=== PATIENT | male | born 1970 | race Caucasian/White ===

== ENCOUNTER 2019-06-04 16:12 | Emergency (ER) | payer SELFPAY ==
--- NOTE | 2019-06-04 17:02 | ER ---
Nurse's Notes [facility] Name: Sony Thornton Age: 49 yrs Sex: Male : 1970 Arrival Date: 06/04/2019 Time: 16:14 Bed 17 Private MD: Diagnosis: Currie's palsy Presentation: 06/03 16:24 Chief complaint: Patient states: Stabbing pain to R ear and R sided facial paralysis ss that began 4 days ago. Pt states, "I know it's bells palsy because I have a family history.". Coronavirus screen: The patient has NOT traveled to a country currently being monitored by the [facility] within the last 14 days. Proceed with normal triage procedures. Ebola Screen: Patient denies exposure to infectious person. Patient denies travel to an Ebola-affected area in the 21 days before illness onset. Initial Sepsis Screen: Does the patient meet any 2 criteria? No. Patient's initial sepsis screen is negative. Does the patient have a suspected source of infection? No. Patient's initial sepsis screen is negative. Risk Assessment: Do you want to hurt yourself or someone else? Patient reports no desire to harm self or others. 16:24 Method Of Arrival: Ambulatory ss 16:24 Acuity: PAVAN 4 ss 16:33 Onset of symptoms was June 04, 2019. ca1 Historical: - Allergies: 16:28 No Known Allergies; ss - Home Meds: 16:28 None [Active]; ss - PMHx: 16:28 None; ss - PSHx: 16:28 L knee; ss - Immunization history:: Adult Immunizations up to date. - Social history:: Smoking status: Patient denies any tobacco usage or history of. Screenin:33 Abuse screen: Denies threats or abuse. Denies injuries from another. Nutritional ca1 screening: No deficits noted. Tuberculosis screening: No symptoms or risk factors identified. Fall Risk None identified. Assessment: 16:33 General: Appears in no apparent distress. comfortable, Behavior is calm, cooperative, ca1 appropriate for age. Pain: Complains of pain in face and right ear Pain currently is 6 out of 10 on a pain scale. Pain began 1 day ago. 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 Gait is steady, Speech is normal, Facial droop on right, Pupils are PERRLA, Intact Denies weakness blurred vision difficulty swallowing, paresthesias numbness. Cardiovascular: Heart tones S1 S2 present Capillary refill < 3 seconds Patient's skin is warm and dry. Respiratory: Airway is patent Respiratory effort is even, unlabored, Respiratory pattern is regular, symmetrical, Breath sounds are clear bilaterally. GI: Abdomen is round non-distended, Bowel sounds present X 4 quads. Abd is soft and non tender X 4 quads. : No signs and/or symptoms were reported regarding the genitourinary system. EENT: No signs and/or symptoms were reported regarding the EENT system. Derm: Skin is intact, is healthy with good turgor, Skin is pink, warm \\T\\ dry. Musculoskeletal: Circulation, motion, and sensation intact. Capillary refill < 3 seconds. 17:10 Reassessment: Pt states, "that BP is pretty much right. You won't get anything lower ca1 than that. I have blood pressure medications but I don't take them". Vital Signs: 16:24 BP 155 / 111; Pulse 110; Resp 18; Temp 97.7(TE); Pulse Ox 98% ; Weight 108.86 kg; ss Height 6 ft. 0 in. (182.88 cm); 17:10 BP 161 / 108; Pulse 99; Resp 17 S; Pulse Ox 100% on R/A; ca1 16:24 Body Mass Index 32.55 (108.86 kg, 182.88 cm) ED Course: 16:14 Patient arrived in ED. mr 16:24 Aiden Sow PA is PHCP. jr8 16:24 Kyree Roger MD is Attending Physician. jr8 16:27 Triage completed. ss 16:28 Arm band placed on right wrist. ss 16:33 Jailyn Means, SPENCER is Primary Nurse. ca1 16:33 Patient has correct armband on for positive identification. Bed in low position. Call ca1 light in reach. Side rails up X 1. Pulse ox on. NIBP on. Warm blanket given. 16:33 No provider procedures requiring assistance completed. ca1 16:41 CT Head Brain wo Cont In Process Unspecified. EDMS 17:01 Ludwig Stroud MD is Referral Physician. jr8 17:19 Patient did not have IV access during this emergency room visit. ca1 Administered Medications: 17:01 Drug: predniSONE 60 mg Route: PO; ca1 17:20 Follow up: Response: No adverse reaction ca1 Outcome: 17: Discharge ordered by . jacque 17:19 Discharged to home ambulatory. ca1 17: Condition: stable 17:19 Discharge instructions given to patient, Instructed on discharge instructions, follow up and referral plans. medication usage, Demonstrated understanding of instructions, follow-up care, medications, Prescriptions given X 1. 17:20 Patient left the ED. ca1 Signatures: Dispatcher [employer] EDCO AnjelKarley mr Alesia Karimi, RN RN Aiden Sow PA PA jr8 Jailyn Means RN RN ca1
--- NOTE | 2019-06-04 17:02 | EDPHYS ---
Physician Documentation [facility] Name: Sony Thornton Age: 49 yrs Sex: Male : 1970 Arrival Date: 06/04/2019 Time: 16:14 Bed 17 Private MD: ED Physician Kyree Roger HPI: 06/03 16:42 This 49 yrs old Male presents to ER via Ambulatory with complaints of Ward jr8 palsy. 16:42 The patient's problem is reported as a facial droop, on right. Onset: The jr8 symptoms/episode began/occurred acutely, yesterday. Duration: This was a single incident. Context: symptoms became apparent yesterday afternoon. The symptoms are alleviated by nothing. The symptoms are aggravated by nothing. Associated signs and symptoms: Pertinent positives: Sharp pain to right ear a couple of days prior. Severity of symptoms: At their worst the symptoms were moderate in the emergency department the symptoms are unchanged. The patient has not experienced similar symptoms in the past. The patient has not recently seen a physician. Denies any other focal deficits . Historical: - Allergies: 16:28 No Known Allergies; ss - Home Meds: 16:28 None [Active]; ss - PMHx: 16:28 None; ss - PSHx: 16:28 L knee; ss - Immunization history:: Adult Immunizations up to date. - Social history:: Smoking status: Patient denies any tobacco usage or history of. ROS: 16:42 Eyes: Negative for injury, pain, redness, and discharge, ENT: Negative for injury, jr8 pain, and discharge, Neck: Negative for injury, pain, and swelling, Cardiovascular: Negative for chest pain, palpitations, and edema, Respiratory: Negative for shortness of breath, cough, wheezing, and pleuritic chest pain, Abdomen/GI: Negative for abdominal pain, nausea, vomiting, diarrhea, and constipation, Back: Negative for injury and pain, MS/Extremity: Negative for injury and deformity, Skin: Negative for injury, rash, and discoloration. 16:42 Neuro: Positive for weakness, of the face. Exam: 16:42 Radiologist reports: No acute intracranial findings jr8 16:42 Head/Face: Normocephalic, atraumatic. Eyes: Pupils equal round and reactive to light, extra-ocular motions intact. Lids and lashes normal. Conjunctiva and sclera are non-icteric and not injected. Cornea within normal limits. Periorbital areas with no swelling, redness, or edema. ENT: Nares patent. No nasal discharge, no septal abnormalities noted. Tympanic membranes are normal and external auditory canals are clear. Oropharynx with no redness, swelling, or masses, exudates, or evidence of obstruction, uvula midline. Mucous membranes moist. Neck: Trachea midline, no thyromegaly or masses palpated, and no cervical lymphadenopathy. Supple, full range of motion without nuchal rigidity, or vertebral point tenderness. No Meningismus. Cardiovascular: Regular rate and rhythm with a normal S1 and S2. No gallops, murmurs, or rubs. Normal PMI, no JVD. No pulse deficits. Respiratory: Lungs have equal breath sounds bilaterally, clear to auscultation and percussion. No rales, rhonchi or wheezes noted. No increased work of breathing, no retractions or nasal flaring. Abdomen/GI: Soft, non-tender, with normal bowel sounds. No distension or tympany. No guarding or rebound. No evidence of tenderness throughout. Back: No spinal tenderness. No costovertebral tenderness. Full range of motion. Skin: Warm, dry with normal turgor. Normal color with no rashes, no lesions, and no evidence of cellulitis. MS/ Extremity: Pulses equal, no cyanosis. Neurovascular intact. Full, normal range of motion. 16:42 Neuro: Orientation: to person, place, time \T\ situation. Mentation: is normal, Memory: is normal, immediate memory is intact, recent memory is intact, remote memory is intact, Cranial nerves: CN I not tested, normal except CN-7 Palsy, extraocular movements are intact, facial droop noted on right, with forehead involved. decreased ocular muscle tone in the right eye, Speech is clear and appropriate. Tongue strength is normal, Cerebellar function: normal finger to nose testing, heel to roy testing is normal, Motor: moves all fours, strength is 5/5 in all extremities, Sensation: no obvious gross deficits, Gait: is steady, at a normal pace, without difficulty, seizure activity, is not displayed by the patient, Abnormal movements: there are no abnormal movements. Vital Signs: 16:24 BP 155 / 111; Pulse 110; Resp 18; Temp 97.7(TE); Pulse Ox 98% ; Weight 108.86 kg; ss Height 6 ft. 0 in. (182.88 cm); 17:10 BP 161 / 108; Pulse 99; Resp 17 S; Pulse Ox 100% on R/A; ca1 16:24 Body Mass Index 32.55 (108.86 kg, 182.88 cm) ss MDM: 16:29 Patient medically screened. jr8 16:42 Data reviewed: vital signs, nurses notes, radiologic studies, CT scan. Data jr8 interpreted: Pulse oximetry: on room air is 98 %. Interpretation: normal. Counseling: I had a detailed discussion with the patient and/or guardian regarding: the historical points, exam findings, and any diagnostic results supporting the discharge/admit diagnosis, radiology results, the need for outpatient follow up, a family practitioner, a neurologist, to return to the emergency department if symptoms worsen or persist or if there are any questions or concerns that arise at home. 06/03 16:29 Order name: CT Head Brain wo Cont; Complete Time: 17:10 jr8 Administered Medications: 17:01 Drug: predniSONE 60 mg Route: PO; ca1 17:20 Follow up: Response: No adverse reaction ca1 Disposition: 06/04 10:35 Co-signature as Attending Physician, Kyree Roger MD I agree with the assessment and [facility] plan of care. Disposition: 06/04/19 17:01 Discharged to Home. Impression: Currie's palsy. - Condition is Stable. - Discharge Instructions: Currie Palsy, Adult. - Prescriptions for Prednisone 20 mg Oral Tablet - take 3 tablet by ORAL route once daily for 5 days; 15 tablet. - Medication Reconciliation Form, Thank You Letter, Antibiotic Education, Prescription Opioid Use form. - Work release form (06/04/19 17:52). ph - Follow up: Ludwig Stroud; When: 1 week; Reason: Recheck today's complaints, Continuance of care, Re-evaluation by your physician. - Problem is new. - Symptoms are unchanged. Signatures: Dispatcher [employer] Kyree Paige MD MD cha Smirch, Shelby, RN RN ss Aiden Sow PA PA jr8 Jailyn Means RN RN [facility] Sushma Da Silva RN ph Corrections: (The following items were deleted from the chart) 06/03 17:20 17:01 06/04/2019 17:01 Discharged to Home. Impression: Currie's palsy. Condition is ca1 Stable. Discharge Instructions: Currie Palsy, Adult. Prescriptions for Prednisone 20 mg Oral Tablet - take 3 tablet by ORAL route once daily for 5 days; 15 tablet. and Forms are Medication Reconciliation Form, Thank You Letter, Antibiotic Education, Prescription Opioid Use. Follow up: Ludwig Stroud; When: 1 week; Reason: Recheck today's complaints, Continuance of care, Re-evaluation by your physician. Problem is new. Symptoms are unchanged. jr8
[2019-06-04] MEDS ORDERED: predniSONE 20 MG TAB ONE (17:04)
--- NOTE | 2019-06-04 17:07 | RAD REPORT ---
EXAM DESCRIPTION: CT - Head Brain Wo Cont - 06/04/2019 4:40 pm CLINICAL HISTORY: DENNY'S PALSY, stabbing pain in the right ear region COMPARISON: No comparisons TECHNIQUE: Axial 5 mm thick images of the head were obtained without IV contrast. All CT scans are performed using dose optimization technique as appropriate and may include automated exposure control or mA/KV adjustment according to patient size. FINDINGS: No intracranial hemorrhage, mass, edema or shift of mid-line structures. No acute infarcti on changes seen. No abnormal extra-axial fluid collections. Ventricles are normal. Mastoid air cells and visualized portions of the paranasal sinuses are clear. No acute bony findings. IMPRESSION: Negative non-contrast CT head examination.
[2019-06-04 17:28] VITALS: TEMP 97.7
[2019-06-04 17:30] VITALS: BP 161/108; O2SAT 100
== END 2019-06-04 17:20 | disposition home or self-care (01) ==
LOC: ER 16:12
DX: G51.0 Bell's palsy (principal)
CPT/HCPCS: 70450; 99284; J7512

== ENCOUNTER 2019-11-25 19:03 | Emergency (ER) | payer SELFPAY ==
--- OUTSIDE RECORDS SUMMARY | 2019-11-25 19:05 | XMS REPORT | Continuity of Care Document ---
:1970 Author Organization [facility] t Address [address] [place] [address] Care Team Providers Name Role Phone Unavailable Unavailable Unavailable Problems This patient has no known problems. Allergies, Adverse Reactions, Alerts This patient has no known allergies or adverse reactions. Medications This patient has no known medications. Procedures This patient has no known procedures. Results Test Description Test Time Test Comments Results Result Comments Source NEG STREP SCRN CONFIRM CULT 2019-01-02 12:35:00 Test Item Value Reference Range Interpretation Comme nts Report Text (test code = Report Text) PDG 2019-01-01 1139 Report Text7 (test code = Report NORMAL RESPIRATORY [place] ISOLATED Text7) Report Text8 (test code = Report PRELIMINARY REPORT Text8) Report Text9 (test code = Report Text9) Report Text10 (test code = Report DMB 2019-01-02 1235 Text10) Report Text11 (test code = Report STREP SCREEN NEGATIVE, CULTURE NE GATIVE Text11) FOR Report Text12 (test code = Report GROUP A STREP - FINAL REPORT. Text12) [id number] 21:22:00 Test Item Value Reference Range Interpretation Comments SODIUM (test code = 141 MMOL/L 137-145 NA) K+ (test code = 4.6 MMOL/L 3.5-5.1 PLEASE NOTE NEW KSERUM) REFERENCE RANGE (S) IN EFFECT EFFECTIVE 010 - NEW ANALYZER (V ITROS 5600) CHLORIDE (test code 104 MMOL/L 98-107 = CL) CO2 (test code = 27 MMOL/L 22-30 CO2) BUN (test code = 18 MG/DL 9-20 BUN) CREA (test code = 0.8 MG/DL 0.8-1.5 CREA) GLUCOSE (test code 125 MG/DL 70-99 H Fasting glucose = GLUCOSE) normal <100 MG/ DL- [employer] recommendation* * CALCIUM (test code 9.5 MG/DL 8.4-10.2 = CABLOOD) TOTPROT (test code 7.7 G/DL 6.3-8.2 = TOTPROT) ALBUMIN (test code 4.4 G/DL 3.5-5.0 = ALBSERUM) BILITOT (test code 0.4 MG/DL 0.2-1.3 = BILITOT) AST (test code = 31 U/L 15-46 AST) PHOSALK (test code 66 U/L 38-126 = PHOSALK) ALT (test code = 35 U/L 13-69 ALT) GFR (test code = 111 A GFR of >9 0 GFR) mL/min/1.73m2 mL/min/1.73m2 is considered norm al. INFLUENZA [id number] 21:19:00 Test Item Value Reference Range Interpretation Comments FLU A (test code = FLU A) NEGATIVE NEGATIVE FLU B (test code = FLU B) NEGATIVE NEGATIVE FLU INTERNAL POSITIVE CNTRL (test PASS PASS code = FLU IPC) INFLUENZA LOT # (test code = 2461669 FLULOT) INFLUENZA EXPIRATION DATE (test 2020-09-18 code = FLUEXP) GROUP A STREP [id number] 21:19:00 Test Item Value Reference Range Interpretation Comments GROUP A STREP SCREEN NEGATIVE NEGATIVE Cultu re set up to (test code = STREPGRA) confi rm negative Strep Screen STREP A INTERNAL POS PASS PASS CNTRL (test code = STRPAIPC) STREP A LOT # (test [id number] code = STRPALOT) STREP A EXPIRATION DATE 2021-05-03 (test code = STRPAEXP) Culture set up to confirm negative Strep ScreenMONONUCLEOSIS RAPID TEST 2018-12-31 21:15:00 Test Item Value Reference Range Interpretation Comments LOT # (test code = LOT #) [id number] EXP DATE (test code = EXP [id number] ) POS CNTL (test code = POS POSITIVE POSITIVE A CNTL) NEG CNTL (test code = NEG NEGATIVE NEGATIVE CNTL) MONONUCLEOSIS (test code = POSITIVE NEGATIVE A MONONUC) [id number] 20:44:00 Test Item Value Reference Range Interpretation Comments WBC (test code = 11.0 K/UL 3.5-10.9 H WBC) RBC (test code = 5.78 M/UL 4.3-5.7 H RBC) HGB (test code = 16.6 G/DL 13.0-17.9 HGB) HCT (test code = 50.5 % 38-52 HCT) MCV (test code = 87.4 FL 80-98 MCV) MCH (test code = 28.7 PG 28-32 MCH) MCHC (test code = 32.9 G/DL 32.5-36.5 MCHC) RDW (test code = 12.9 % 11.5-14.5 RDW) PLT (test code = 354 K/UL 150-450 PLT) MPV (test code = 10.1 FL 7.4-10.4 MPV) MANDIFF (test code = NO MANDIFF) SCAN (test code = NO SCAN) NEUT% (test code = 72.3 % 40-75 NEUT%) LYMPH% (test code = 18.4 % 24-44 L LYMPH%) MONO% (test code = 7.1 % 0-13 MONO%) EOS% (test code = 0.0 % 0-4 EOS%) BASO % (test code = 0.2 % 0-2 BASO%) IG (test code = IG) 0 % 0-1 IG% (test code = 2.0 % 0-1 H IG% = Metam yelocytes, IG%) Myelocytes, and Promyelocytes. (Immature neutr ophils not including " bands".) > 3% IG indic ates risk of sepsis NRBC% (test code = 0 /100 WBC NRBC%) ABS NEUT (test code 7.9 K/UL 1.2-7.2 H = NEUT)
[2019-11-25] MEDS ORDERED: HYDROCODONE/APAP 10/325 TAB ONE (19:37)
[2019-11-25] MEDS ORDERED: LIDOCAINE 4% PATCH ONE (19:37)
[2019-11-25] MEDS ORDERED: KETOROLAC 30 MG/ML INJ ONE (19:37)
[2019-11-25] MEDS ORDERED: dexAMETHasone 10 MG/ML VIAL ONE (20:02)
--- NOTE | 2019-11-25 20:05 | EDPHYS ---
Physician Documentation [facility] Name: Sony Thornton Age: 49 yrs Sex: Male : 1970 Arrival Date: 11/25/2019 Time: 19:07 Bed 18 Private MD: ED Physician Héctor Noland Historical: - Allergies: 11/24 19:29 No Known Allergies; lp1 - Home Meds: 19:29 None [Active]; lp1 - PMHx: 19:29 None; lp1 - PSHx: 19:29 Knee surgery; lp1 - Immunization history:: Adult Immunizations up to date. - Social history:: Smoking status: Patient reports the use of cigarette tobacco products, smokes one pack cigarettes per day. Vital Signs: 19:15 BP 172 / 107; Pulse 97; Resp 16; Temp 97.4; Pulse Ox 96% on R/A; Pain 10/10; ea 19:15 BP 172 / 107; Pulse 99; Resp 18; Pulse Ox 97% on R/A; Weight 108.86 kg (R); Height 6 lp1 ft. 0 in. (182.88 cm); Pain 10/10; 20:18 BP 172 / 88; Pulse 90; Resp 18; Pulse Ox 95% on R/A; Pain 4/10; ea 19:15 Body Mass Index 32.55 (108.86 kg, 182.88 cm) lp1 MDM: 19:15 Patient medically screened. pm1 19:51 Data reviewed: vital signs. Data interpreted: Pulse oximetry: on room air is 97 %. pm1 Interpretation: normal. 20:05 Counseling: I had a detailed discussion with the patient and/or guardian regarding: the pm1 historical points, exam findings, and any diagnostic results supporting the discharge/admit diagnosis, the need for outpatient follow up, a neurosurgeon, a supervisor paint, to return to the emergency department if symptoms worsen or persist or if there are any questions or concerns that arise at home. 20:13 ED course: [place] aware reviewed. pm1 20:15 ED course: Patient pain improved to 4/10 and he feels ready to go home. pm1 Administered Medications: 19:32 Drug: [place] 10 mg-325 mg 1 tabs Route: PO; ea 19:55 Follow up: Response: No adverse reaction; Pain is decreased ea 19:33 Drug: Lidoderm 5 % (700 mg/patch) 1 patches Route: Topical; Site: affected area; ea 19:55 Follow up: Response: No adverse reaction ea 19:33 Drug: TORadol 60 mg Route: IM; Site: right gluteus; ea 19:55 Follow up: Response: No adverse reaction; Pain is decreased ea 19:53 Drug: Decadron 10 mg Route: IM; Site: left deltoid; ea 19:55 Follow up: Response: No adverse reaction ea Disposition: 11/25 07:00 Co-signature as Attending Physician, Héctor Noland MD I agree with the assessment and tw4 plan of care. Disposition: 11/25/19 20:05 Discharged to Home. Impression: Lumbago with sciatica, left side. - Condition is Stable. - Discharge Instructions: Back Pain, Adult, Chronic Back Pain, Sciatica. - Prescriptions for Lidoderm 5 % Topical adhesive patch,medicated - apply 1 patch by TRANSDERMAL route once daily As needed; 30 Transdermal Patch. Tylenol- Codeine #3 300-30 mg Oral Tablet - take 2 tablet by ORAL route every 6 hours As needed; 30 tablet. Medrol (Gustavo) 4 mg Oral Tablets, Dose Pack - take 1 tablet by ORAL route as directed - follow package instructions; 1 packet. - Medication Reconciliation Form, Thank You Letter, Antibiotic Education, Prescription Opioid Use, Work release form form. - Follow up: Emergency Department; When: As needed; Reason: Worsening of condition. Follow up: Private Physician; When: 2 - 3 days; Reason: Recheck today's complaints, Continuance of care, Re-evaluation by your physician. - Problem is new. - Symptoms have improved. Signatures: Linda Lincoln RN RN lp1 Isacc Kong NP EXTENSION SERVICE SPECIALIST pm1 Ebony Handy RN RN ea Wadley, Terrence, MD MD tw4 Corrections: (The following items were deleted from the chart) 11/24 20:24 20:05 11/25/2019 20:05 Discharged to Home. Impression: Lumbago with sciatica, left ea side. Condition is Stable. Discharge Instructions: Back Pain, Adult, Chronic Back Pain, Sciatica. Forms are Medication Reconciliation Form, Thank You Letter, Antibiotic Education, Prescription Opioid Use. Follow up: Emergency Department; When: As needed; Reason: Worsening of condition. Follow up: Private Physician; When: 2 - 3 days; Reason: Recheck today's complaints, Continuance of care, Re-evaluation by your physician. Problem is new. Symptoms have improved. pm1
--- NOTE | 2019-11-25 20:05 | ER ---
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 Coronavirus screen: Client denies travel out of the [place] in the last 14 days. At this time, the client does not indicate any symptoms associated with coronavirus-19. Ebola Screen: No symptoms or risks identified at this time. Initial Sepsis Screen: Does the patient meet any 2 criteria? No. Patient's initial sepsis screen is negative. Does the patient have a suspected source of infection? No. Patient's initial sepsis screen is negative. Risk Assessment: Do you want to hurt yourself or someone else? Patient reports no desire to harm self or others. Onset of symptoms was November 22, 2019. 19:15 Method Of Arrival: Wheelchair lp1 19:15 Acuity: PAVAN 3 lp1 19:16 Ebola Screen: No symptoms or risks identified at this time. ea Historical: - Allergies: 19:29 No Known Allergies; lp1 - Home Meds: 19:29 None [Active]; lp1 - PMHx: 19:29 None; lp1 - PSHx: 19:29 Knee surgery; lp1 - Immunization history:: Adult Immunizations up to date. - Social history:: Smoking status: Patient reports the use of cigarette tobacco products, smokes one pack cigarettes per day. Screenin:14 Abuse screen: Denies threats or abuse. Nutritional screening: No deficits noted. ea Tuberculosis screening: No symptoms or risk factors identified. Fall Risk None identified. Assessment: 19:18 General: Appears in no apparent distress. Behavior is calm, cooperative, appropriate ea for age. Pain: Complains of pain in lumbar area, left low back and right low back Pain radiates to left leg Pain currently is 10 out of 10 on a pain scale. Quality of pain is described as radiating, sharp, shooting, Pain began 2-3 days ago. Is continuous, Aggravated by increased activity, repositioning, weight bearing, Noted to be grimacing, Also complains of. Neuro: Level of Consciousness is awake, alert, obeys commands, Oriented to person, place, time, situation. Cardiovascular: Capillary refill < 3 seconds Patient's skin is warm and dry. Respiratory: Airway is patent Respiratory effort is even, unlabored, Respiratory pattern is regular, symmetrical. GI: No signs and/or symptoms were reported involving the gastrointestinal system. : No signs and/or symptoms were reported regarding the genitourinary system. Denies burning with urination, pain urinary frequency, urgency. EENT: No signs and/or symptoms were reported regarding the EENT system. Derm: Skin is intact, is healthy with good turgor, Skin is dry, Skin is pink, warm \T\ dry. Skin temperature is warm. Musculoskeletal: Circulation, motion, and sensation intact. Range of motion: intact in all extremities, Reports slight tingling down left leg for more than 7 days. Vital Signs: 19:15 BP 172 / 107; Pulse 97; Resp 16; Temp 97.4; Pulse Ox 96% on R/A; Pain 10/10; ea 19:15 BP 172 / 107; Pulse 99; Resp 18; Pulse Ox 97% on R/A; Weight 108.86 kg (R); Height 6 lp1 ft. 0 in. (182.88 cm); Pain 10/10; 20:18 BP 172 / 88; Pulse 90; Resp 18; Pulse Ox 95% on R/A; Pain 4/10; ea 19:15 Body Mass Index 32.55 (108.86 kg, 182.88 cm) lp1 ED Course: 19:07 Patient arrived in ED. bp1 19:14 Isacc Kong NP is PHCP. pm1 19:14 Ebony Handy, SPENCER is Primary Nurse. ea 19:16 Patient has correct armband on for positive identification. Bed in low position. Call ea light in reach. Side rails up X2. 19:16 Arm band placed on right wrist. Patient placed in an exam room, on a stretcher, on ea pulse oximetry. 19:17 Triage completed. lp1 20:08 Héctor Nloand MD is Attending Physician. pm1 20:22 No provider procedures requiring assistance completed. Patient did not have IV access ea during this emergency room visit. Administered Medications: 19:32 Drug: [place] 10 mg-325 mg 1 tabs Route: PO; ea 19:55 Follow up: Response: No adverse reaction; Pain is decreased ea 19:33 Drug: Lidoderm 5 % (700 mg/patch) 1 patches Route: Topical; Site: affected area; ea 19:55 Follow up: Response: No adverse reaction ea 19:33 Drug: TORadol 60 mg Route: IM; Site: right gluteus; ea 19:55 Follow up: Response: No adverse reaction; Pain is decreased ea 19:53 Drug: Decadron 10 mg Route: IM; Site: left deltoid; ea 19:55 Follow up: Response: No adverse reaction ea Outcome: 20:05 Discharge ordered by . pm1 20:22 Discharged to home ambulatory. ea 20:22 Condition: stable 20:22 Discharge instructions given to patient, Instructed on discharge instructions, follow up and referral plans. no driving heavy equipment, medication usage, Demonstrated understanding of instructions, follow-up care, medications, Prescriptions given X 3. 20:24 Patient left the ED. ea Signatures: Linda Lincoln RN RN lp1 Isacc Kong NP SUPPLY TECH pm1 Ebony Handy RN RN ea Tana Skinner
[2019-11-26 18:42] VITALS: TEMP 97.4
[2019-11-26 18:43] VITALS: BP 172/88; O2SAT 95
== END 2019-11-25 20:24 | disposition home or self-care (01) ==
LOC: ER 19:03
DX: M54.42 Lumbago with sciatica, left side (principal); F17.210 Nicotine dependence, cigarettes, uncomplicated
CPT/HCPCS: 96372; 99283; J1100